=== PATIENT | female | born 1995 | race African-American/Black ===

== ENCOUNTER 2023-06-25 01:38 | Day surgery (SDC) | payer OTHER, SELFPAY ==
[2023-06-11 13:49] VITALS: BMI 46.7
--- NOTE | 2023-06-23 11:11 | SUR.PREOP ---
Patient called regarding upcoming procedure. Reviewed preop instructions, appointment times, and procedure prep. Times changed due to cancellations in doctor's schedule. Patient coming in at 8 am
[2023-06-25 08:27] VITALS: BP 126/85; PULSE 75; RESP 18; TEMP 36.5; O2SAT 100
[2023-06-25] MEDS: LACTATED RINGERS 1,000 ML 150 ML IV CONT (08:46)
--- NOTE | 2023-06-25 08:49 | P.PNAN_ITS ---
Anes - Initial Pre Proc Eval Procedure: Operation Date: 06/25/23 09:30 Proposed Procedures p Esophagogastroduodenoscopy - Pradeep Levy MD Date/Time: 06/25/23 08:49 Surgeon: Pradeep Levy MD Pre Op Diagnosis: Epigastric pain Patient Data Age: 28 Gender: F Height: 1.66 m Weight: 129.1 kg Last Vital Signs Temp 97.7 F 06/25/23 08:27 Pulse 75 06/25/23 08:27 Resp 18 06/25/23 08:27 BP 126/85 06/25/23 08:27 Pulse Ox 100 06/25/23 08:27 O2 Del Method Room Air 06/25/23 08:27 Allergies Allergy/AdvReac Type Severity Reaction Status Date / Time mushroom Allergy Severe Itching Verified 06/25/23 08:26 sesame seed Allergy Severe Itching Verified 06/25/23 08:26 clarithromycin Allergy Intermediate Hives Verified 06/25/23 08:26 famotidine Allergy Intermediate Hives Verified 06/25/23 08:26 nut - unspecified Allergy Intermediate Hives Verified 06/25/23 08:26 omeprazole Allergy Intermediate Hives Verified 06/25/23 08:26 Home Medications Medication Instructions Recorded Confirmed Type cholecalciferol (vitamin D3) 125 125 mcg PO DAILY 06/11/23 06/25/23 History mcg (5,000 unit) tablet (Vitamin D3) Patient hx anesthesia problems: none Family hx anesthesia problems: none Results Review: All pre-operative results and documents have been reviewed as part of the pre- operative evaluation. [facility] Past Medical History Medical History (Updated 06/01/23 @ 13:47 by Ying Capps APRN) Epigastric pain History of Helicobacter pylori infection Obesity Family History Family History Mother Patient's mother is in good health Sibling Asthma Patient's brother is in good health Social History Social History Smoking status: Never smoker Second hand tobacco smoke exposure: No Alcohol intake: current Substance use: never Substance use type: does not use Living arrangements: with family Spiritual care concerns: No Anes - Eval Final PreProcedure Day of Procedure 12/01/23 08:49 Patient weight: morbidly obese Heart: regular rate and rhythm Lungs: clear to auscultation Airway: Mallampati scale class II Neurological: alert and oriented Last oral intake: >/= 8 hours ASA classification: III Emergent: no Anesthetic plan: proceed Anesthesia type and monitoring: general GIVS and standard monitoring Results Review: All pre-operative results and documents have been reviewed as part of the pre- operative evaluation. Informed Consent: The patient's anesthetic plan and its attendant risks and benefits were discussed with the patient/family/POA. Questions were solicited and answers provided to the satisfaction of the patient/family/POA.
--- NOTE | 2023-06-25 09:12 | WPDHPUPDATE1 ---
History and Physical Update Update Date/Time: 06/25/23 09:12 History and Physical has been reviewed, including an updated exam of the patient. There are NO changes in the patient's condition. Risks, benefits, and alternatives have been discussed and questions answered. Patient agrees to proceed with procedure.
[2023-06-25 09:34] VITALS: BP 111/65; PULSE 66; RESP 22; O2SAT 100
[2023-06-25 09:44] VITALS: BP 104/59; PULSE 63; RESP 21; O2SAT 100
[2023-06-25 09:54] VITALS: BP 123/80; PULSE 63; RESP 19; O2SAT 100
== END 2023-06-25 09:58 | disposition home or self-care (01) ==
PROVIDERS: PCP Nurse Practitioner Family; Visit Provider Internal Medicine Gastroenterology
PROC: 0DJ08ZZ Inspection of Upper Intestinal Tract, Via Natural or Artificial Opening Endoscopic (ICD-10-PCS; CPT 43235; principal; 2023-06-25 09:30)
DX: K29.50 Unspecified chronic gastritis without bleeding (principal); R10.13 Epigastric pain; Z86.19 Personal history of other infectious and parasitic diseases; E66.9 Obesity, unspecified; Z68.42 Body mass index [BMI] 45.0-49.9, adult
CPT/HCPCS: 43239; 87081; 88305; J2704; J7120